=== PATIENT | male | born 1985 | race Two or more races ===

== ENCOUNTER 2020-03-19 16:57 | Emergency (ER) | payer SELFPAY ==
[~2020-03-19] VITALS: Ht 172.7 cm; Wt 72.6 kg
[2020-03-19] MEDS ORDERED: SODIUM CHLORIDE 0.9% 1,000 ML IVB ONE (17:27)
[2020-03-19] MEDS ORDERED: LORazepam 2MG/ML-1ML VIAL ONE (17:27)
[2020-03-19] MEDS ORDERED: LORazepam 2MG/ML-1ML VIAL IV ONE (17:30)
[2020-03-19 17:50] LABS: Basophils # (auto) 0 10 ^3/uL (0-0.2); Basophils % (auto) 0.6 % (0.0-2.0); Eosinophils # (auto) 0.1 10 ^3/uL (0-0.8); Eosinophils % (auto) 1.3 % (0.0-7.0); Hematocrit 42.3 % (41.0-53.0); Hemoglobin 14.1 g/dL (13.5-17.5); Lymphocytes % (auto) 28.3 % (10.0-50.0); Mean Corpuscular Hemoglobin 32.2 pg (28.0-32.0); Mean Corpuscular Hgb Conc. 33.3 g/dL (32.0-36.0); Mean Corpuscular Volume 96.7 fL (80.0-100.0); Monocytes # (auto) 0.6 10 ^3/uL (0-1.3); Neutrophils # (auto) 4.3 10 ^3/uL (1.6-8.6); Neutrophils % (auto) 60.8 % (37.0-80.0); Nucleated Red Blood Cells % 0.1 %; Platelet Count (auto) 335 10^3/uL (140-450); Red Blood Cells 4.37 10^6/uL (4.5-5.90); Red Cell Distribution Width 12.6 % (11.8-14.3); White Blood Cell 7.1 10^3/uL (4.4-10.8)
[2020-03-19 18:12] LABS: Albumin 3.8 g/dL (3.4-5.0); Calcium 8.9 mg/dL (8.5-10.1); Magnesium 2.7 mg/dL (1.6-2.6); Potassium 3.1 mmol/L (3.5-5.1)
[2020-03-19 18:16] LABS: BUN/Creatinine Ratio 13.4; Bilirubin, Total 0.6 mg/dL (0.2-1.0); Total Protein 7.6 g/dL (6.4-8.2)
[2020-03-19 18:56] VITALS: BP 122/57
== END 2020-03-19 19:07 | disposition still patient (30) ==
LOC: ER 16:57
DX: F19.159 Other psychoactive substance abuse with psychoactive substance-induced psychotic disorder, unspecified (principal)
CPT/HCPCS: 36415; 71045; 80053; 80320; 83735; 85025; 96361; 96374; 99284; J2060